=== PATIENT | male | born 1975 | race Asian ===

== ENCOUNTER → 2016-08-24 | Outpatient (CLI) | payer OTHER | LOC: CIMAGING 14:32 | PROVIDERS: ATTEND Internal Medicine | DX: M25.571 Pain in right ankle and joints of right foot (principal); M10.9 Gout, unspecified; K58.9 Irritable bowel syndrome, unspecified | CPT/HCPCS: 73600-PO ==

== ENCOUNTER → 2016-09-30 | Outpatient (CLI) | payer OTHER | LOC: CIMAGING 07:17 | PROVIDERS: ATTEND Internal Medicine | DX: N13.30 Unspecified hydronephrosis (principal); N20.0 Calculus of kidney; K76.0 Fatty (change of) liver, not elsewhere classified | CPT/HCPCS: 76770-PO ==

== ENCOUNTER → 2016-12-10 | Outpatient (CLI) | payer OTHER | LOC: CIMAGING 07:17 | PROVIDERS: ATTEND Specialist | DX: N20.0 Calculus of kidney (principal) | CPT/HCPCS: 76770-PO ==